=== PATIENT | male | born 1945 | race Caucasian/White ===

== ENCOUNTER 2017-05-07 15:15 | Inpatient (IN) | payer MEDICARE ==
[~2017-05-07] VITALS: Ht 177.8 cm; Wt 47.0 kg
[~2017-05-07 15:15] MED LIST: ARICEPT10 MG PO; MIRTAZAPINE7.5 MG PO; PRILOTC; PROAIR HFA0.09 MG/AC IH; RT ADVAIR 228 DISKUS IH; RT SPIRIVA18 MCG IH; VENTOLIN0.09 MG IH; XOPENEX HF0.045 MG/A IH
[2017-05-07 15:59] LABS: BASO % 0.1 % (0.0-2.0); EOS % 0.1 % (0-4.0); GRAN # 11.5 (1.4-6.5); GRAN % 80.3 % (42.2-75.2); HEMATOCRIT 38.3 % (42.0-52.0); LYMPH # 1.5 (1.2-3.4); LYMPH % 10.3 % (20.0-51.0); MEAN CELL VOLUME 94 fl (80.0-100.0); MEAN CORPUSCULAR HEMOGLOBIN 29 pg (27.0-31.0); MEAN CORPUSCULAR HGB CONC 31 g/dl (33.0-37.0); MONO # 1.2 (0.1-0.6); MONO % 8.4 % (1.7-9.3); PLATELET COUNT 268 K/mm3 (130-400); RED BLOOD COUNT 4.08 M/mm3 (4.20-5.60); REDCELL DISTRIBUTION WIDTH-CV 13.3 % (11.5-14.5); WHITE BLOOD COUNT 14.3 K/mm3 (4.8-10.8)
[2017-05-07 16:02] LABS: INR 1.1 (0.8-3.0); PROTHROMBIN TIME 12.4 SECONDS (9.7-12.8)
[2017-05-07 16:05] LABS: PARTIAL THROMBOPLASTIN TIME 35.2 SECONDS (26.0-37.0)
[2017-05-07 16:14] LABS: ADJUSTED CALCIUM 9.8 mg/dL (8.4-10.2); ALBUMIN 3.6 gm/dL (3.5-5.0); BILIRUBIN,TOTAL 0.6 mg/dL (0.0-1.0); C-REACTIVE PROTEIN 6.7 mg/dL (0.0-0.9); CALCIUM 9.5 mg/dL (8.4-10.2); CREATININE, serum 0.54 mg/dL (0.66-1.25); POTASSIUM 3.8 mmol/L (3.4-5.0); TOTAL PROTEIN 6.8 gm/dL (6.4-8.2)
[2017-05-07 16:15] LABS: ARTERIAL BLD GAS O2 SATURATION 95.4 % (92-100); ARTERIAL BLD GAS TCO2 CT 38.1; ARTERIAL BLOOD GAS BASE EXCESS 11.3 (-2-2); ARTERIAL BLOOD GAS HCO3 36.6 meq/L (22-26); ARTERIAL BLOOD GAS PHT 7.48 C (7.35-7.45); ARTERIAL BLOOD GAS PO2 75.2 mmHg (80-100); ARTERIAL BLOOD GAS PO2T 75.2 (80-100); ARTERIAL BLOOD GAS pH 7.48 (7.35-7.45); OXYHEMOGLOBIN 94.7 %
[2017-05-07 16:17] LABS: ATS? YES
[2017-05-07] MEDS ORDERED: NICOTROL I420 MG/42 IH (16:21)
[2017-05-07] MEDS ORDERED: INCRUSE EL62.5 MCG/A IH (16:22)
[2017-05-07] MEDS ORDERED: MEGACE ORAL40 MG/ML PO (16:23)
[2017-05-07] MEDS ORDERED: RT ADVAIR 228 DISKUS IH (16:23)
[2017-05-07 16:24] LABS: TROPONIN-I 0.059 ng/mL (0.000-0.034)
[2017-05-07] MEDS ORDERED: FENTANYL 50MCG TD (16:24)
[2017-05-07] MEDS ORDERED: VENTOLIN0.09 MG IH (16:25)
[2017-05-07] MEDS ORDERED: ATROVENT INHALE14 GM IH (16:26)
[2017-05-07] MEDS ORDERED: BEVESPI AEROS10.7 GM IH (16:26)
[2017-05-07] MEDS ORDERED: PREDNISONE10 MG PO (16:27)
[2017-05-07] MEDS ORDERED: NASAL MOISTURIZ45 ML NS (16:27)
[2017-05-07] MEDS ORDERED: ATIVAN 0.50.5 MG/TAB PO (16:28)
[2017-05-07] MEDS ORDERED: SENNA8.6 MG PO (16:29)
[2017-05-07] MEDS ORDERED: PRILOSEC 20MG20 MG PO (16:29)
[2017-05-07] MEDS ORDERED: THEO-DUR 3300 MG/TAB PO (16:30)
[2017-05-07] MEDS ORDERED: CLARITIN 1010 MG/TAB PO (16:30)
[2017-05-07] MEDS ORDERED: NORCO 325 MG-51 TAB PO (16:31)
[2017-05-07 17:00] LABS: THEOPHYLLINE 8.6 ug/mL (10.0-20.0)
[2017-05-07 18:12] VITALS: BP 128/65; PULSE 117; TEMP 98.1
[2017-05-07] MEDS ORDERED: TYLENOL 325MG325 MG PO ×2 (18:42)
[2017-05-07] MEDS ORDERED: NORCO 325 MG-7.1 TAB PO (18:44)
[2017-05-07] MEDS ORDERED: RT SPIRIVA18 MCG IH (18:46)
[2017-05-07] MEDS ORDERED: MUCINEX 60600 MG/TA1 PO (18:47)
[2017-05-07] MEDS ORDERED: LIPITOR 40MG TA40 MG PO (18:49)
[2017-05-07] MEDS ORDERED: ASPIRIN 32325 MG/TAB PO (18:49)
[2017-05-08] VITALS (7 sets, daily range): BP systolic 115–155; BP diastolic 45–108; PULSE 107–127; TEMP 97.9–98.4
[2017-05-08 07:18] LABS: MEAN CELL VOLUME 97 fl (80.0-100.0); MEAN CORPUSCULAR HGB CONC 30 g/dl (33.0-37.0); MEAN PLATELET VOLUME 11.6 fl (7.4-10.4); PLATELET COUNT 252 K/mm3 (130-400); RED BLOOD COUNT 3.55 M/mm3 (4.20-5.60); REDCELL DISTRIBUTION WIDTH-CV 13.6 % (11.5-14.5); WHITE BLOOD COUNT 9.1 K/mm3 (4.8-10.8)
[2017-05-08 07:19] LABS: HEMATOCRIT 34.4 % (42.0-52.0); HEMOGLOBIN 10.4 g/dl (13.5-18.0); MEAN CORPUSCULAR HEMOGLOBIN 29 pg (27.0-31.0)
[2017-05-08 07:20] LABS: ADD PATHOLOGY DIFF REVIEW NO
[2017-05-08 07:34] LABS: CALCIUM 8.7 mg/dL (8.4-10.2); CREATININE, serum 0.48 mg/dL (0.66-1.25); POTASSIUM 3.9 mmol/L (3.4-5.0)
[2017-05-08 07:59] LABS: THYROID STIMULATING HORMONE 0.345 uIU/mL (0.465-4.680)
[2017-05-08 08:28] LABS: BAND 10 % (0-10); NEUTROPHILS 84 % (42.0-75.2); TOTAL CELLS COUNTED 100
[2017-05-08 08:29] LABS: PLATELET ESTIMATE NORMAL (NORMAL)
[2017-05-09 02:55] VITALS: BP 134/60; PULSE 106; TEMP 98.6
[2017-05-09 07:25] LABS: BASO % 0.1 % (0.0-2.0); GRAN # 8.4 (1.4-6.5); GRAN % 83.7 % (42.2-75.2); LYMPH # 1.2 (1.2-3.4); LYMPH % 11.9 % (20.0-51.0); MEAN CELL VOLUME 97 fl (80.0-100.0); MEAN CORPUSCULAR HGB CONC 30 g/dl (33.0-37.0); MEAN PLATELET VOLUME 11.7 fl (7.4-10.4); MONO # 0.3 (0.1-0.6); MONO % 3.4 % (1.7-9.3); PLATELET COUNT 271 K/mm3 (130-400); RED BLOOD COUNT 3.47 M/mm3 (4.20-5.60); REDCELL DISTRIBUTION WIDTH-CV 13.5 % (11.5-14.5)
[2017-05-09 07:26] LABS: HEMATOCRIT 33.6 % (42.0-52.0); HEMOGLOBIN 10.1 g/dl (13.5-18.0); MEAN CORPUSCULAR HEMOGLOBIN 29 pg (27.0-31.0)
[2017-05-09 07:32] VITALS: BP 145/79; PULSE 107; TEMP 97.8
[2017-05-09 07:36] LABS: CALCIUM 8.8 mg/dL (8.4-10.2); CREATININE, serum 0.44 mg/dL (0.66-1.25); POTASSIUM 3.7 mmol/L (3.4-5.0)
[2017-05-09 12:47] VITALS: BP 154/69; PULSE 106; TEMP 98.2
[2017-05-09] MEDS ORDERED: ZITHROMAX 250M250 MG PO (15:52)
[2017-05-09] MEDS ORDERED: VENTOLIN0.09 MG IH (16:12)
[2017-05-09] MEDS ORDERED: IPRATROPIUM BROM3 M1 IH (16:14)
[2017-05-09] MEDS ORDERED: PREDNISONE10 MG PO (16:14)
[2017-05-09] MEDS ORDERED: RT ADVAIR 228 DISKUS IH (16:15)
== END 2017-05-09 18:20 | disposition home or self-care (01) | DRG 189 ==
LOC: COL.ER 15:15 → MEDICAL 17:33
PROVIDERS: Emergency Medicine; Family Medicine; Physician Assistant
DX: J96.21 Acute and chronic respiratory failure with hypoxia (principal); E43 Unspecified severe protein-calorie malnutrition; I21.4 Non-ST elevation (NSTEMI) myocardial infarction; J44.1 Chronic obstructive pulmonary disease with (acute) exacerbation; Z68.1 Body mass index [BMI] 19.9 or less, adult; I10 Essential (primary) hypertension; F17.210 Nicotine dependence, cigarettes, uncomplicated; I27.2 Other secondary pulmonary hypertension; D38.1 Neoplasm of uncertain behavior of trachea, bronchus and lung
CPT/HCPCS: 99223-AI; 99233-AI; 99239; J0456; J0696; J1650; J1956; J2543; J2920; J3370; J7030; J7050; Q9967

== ENCOUNTER 2017-05-30 13:01 | Day surgery (SDC) | payer MEDICARE, MEDICAID ==
[~2017-05-30] VITALS: Ht 177.8 cm; Wt 40.0 kg
[2017-05-30] VITALS (9 sets, daily range): BP systolic 113–154; BP diastolic 70–83; PULSE 106–118; TEMP 99.2
[~2017-05-30 13:01] MED LIST changes: +ASPIRIN 32325 MG/TAB PO; +ATIVAN 0.50.5 MG/TAB PO; +ATROVENT INHALE14 GM IH; +BEVESPI AEROS10.7 GM IH; +CLARITIN 1010 MG/TAB PO; +FENTANYL 50MCG TD; +INCRUSE EL62.5 MCG/A IH; +IPRATROPIUM BROM3 M1 IH; +LIPITOR 40MG TA40 MG PO; +MEGACE ORAL40 MG/ML PO; +MUCINEX 60600 MG/TA1 PO; +NASAL MOISTURIZ45 ML NS; +NICOTROL I420 MG/42 IH; +NORCO 325 MG-51 TAB PO; +NORCO 325 MG-7.1 TAB PO; +PREDNISONE10 MG PO; +PRILOSEC 20MG20 MG PO; +SENNA8.6 MG PO; +THEO-DUR 3300 MG/TAB PO; +TYLENOL 325MG325 MG PO; +ZITHROMAX 250M250 MG PO
[2017-05-30 13:56] LABS: HEMATOCRIT 38.4 % (42.0-52.0); HEMOGLOBIN 12.1 g/dl (13.5-18.0); MEAN CELL VOLUME 94 fl (80.0-100.0); MEAN CORPUSCULAR HEMOGLOBIN 30 pg (27.0-31.0); MEAN CORPUSCULAR HGB CONC 32 g/dl (33.0-37.0); PLATELET COUNT 238 K/mm3 (130-400); RED BLOOD COUNT 4.07 M/mm3 (4.20-5.60); REDCELL DISTRIBUTION WIDTH-CV 13.8 % (11.5-14.5); WHITE BLOOD COUNT 11.6 K/mm3 (4.8-10.8)
[2017-05-30 13:57] LABS: PROTHROMBIN TIME 11.3 SECONDS (9.7-12.8)
[2017-05-30 14:15] LABS: CALCIUM 9.3 mg/dL (8.4-10.2); CREATININE, serum 0.48 mg/dL (0.66-1.25); POTASSIUM 3.8 mmol/L (3.4-5.0)
[2017-05-30] MEDS ORDERED: PREDNISONE10 MG PO (14:30)
[2017-05-30] MEDS ORDERED: NORCO 325 MG-51 TAB PO (14:33)
== END 2017-05-30 19:00 | disposition home or self-care (01) ==
LOC: COL.CAR 13:01
PROVIDERS: Internal Medicine Interventional Cardiology
DX: I25.10 Atherosclerotic heart disease of native coronary artery without angina pectoris (principal); R94.39 Abnormal result of other cardiovascular function study; I07.1 Rheumatic tricuspid insufficiency; D49.1 Neoplasm of unspecified behavior of respiratory system; F17.210 Nicotine dependence, cigarettes, uncomplicated; I73.9 Peripheral vascular disease, unspecified; J44.9 Chronic obstructive pulmonary disease, unspecified; M79.605 Pain in left leg; M79.604 Pain in right leg; R06.02 Shortness of breath
CPT/HCPCS: C1760; C1894; J3010; Q9967

== ENCOUNTER 2017-06-24 12:23 | Observation (INO) | payer MEDICARE, MEDICAID ==
[~2017-06-24] VITALS: Ht 177.8 cm; Wt 41.3 kg
[2017-06-24] MEDS ORDERED: CARDIZEM120 MG PO (12:45)
[2017-06-24 13:50] LABS: HEMATOCRIT 41.7 % (42.0-52.0); HEMOGLOBIN 12.8 g/dl (13.5-18.0); MEAN CELL VOLUME 95 fl (80.0-100.0); MEAN CORPUSCULAR HEMOGLOBIN 29 pg (27.0-31.0); MEAN CORPUSCULAR HGB CONC 31 g/dl (33.0-37.0); MEAN PLATELET VOLUME 10.7 fl (7.4-10.4); PLATELET COUNT 309 K/mm3 (130-400); RED BLOOD COUNT 4.37 M/mm3 (4.20-5.60); REDCELL DISTRIBUTION WIDTH-CV 14.6 % (11.5-14.5); WHITE BLOOD COUNT 13.9 K/mm3 (4.8-10.8)
[2017-06-24 13:56] LABS: ADD PATHOLOGY DIFF REVIEW NO
[2017-06-24 14:01] LABS: ADJUSTED CALCIUM 9.9 mg/dL (8.4-10.2); ALANINE AMINOTRANSFERASE 25 U/L (21-72); ALBUMIN 4.3 gm/dL (3.5-5.0); ALKALINE PHOSPHATASE 117 U/L (50-136); ANION GAP 10 mmol/L (7-16); BILIRUBIN,TOTAL 0.7 mg/dL (0.0-1.0); BLOOD UREA NITROGEN 15 mg/dL (9-20); CALCIUM 10.1 mg/dL (8.4-10.2); CARBON DIOXIDE 37 mmol/L (22-30); CHLORIDE 94 mmol/L (98-107); CREATININE, serum 0.48 mg/dL (0.66-1.25); GLUCOSE 77 mg/dL (74-106); POTASSIUM 4.5 mmol/L (3.4-5.0); SODIUM 140 mmol/L (137-145); TOTAL PROTEIN 7.7 gm/dL (6.4-8.2)
[2017-06-24 14:02] LABS: PROTHROMBIN TIME 10.5 SECONDS (9.7-12.8)
[2017-06-24 14:03] LABS: PARTIAL THROMBOPLASTIN TIME 27.5 SECONDS (26.0-37.0)
[2017-06-24 14:13] LABS: B-TYPE NATRIURETIC PEPTIDE 207 pg/mL (0-125)
[2017-06-24 14:14] LABS: TROPONIN-I < 0.012 ng/mL (0.000-0.034)
[2017-06-24 14:15] LABS: BAND 1 % (0-10); NEUTROPHILS 68 % (42.0-75.2); TOTAL CELLS COUNTED 100
[2017-06-24 14:16] LABS: SPHEROCYTE 1+; STOMATOCYTE 2+
[2017-06-24 14:18] LABS: PLATELET ESTIMATE NORMAL (NORMAL); POLYCHROMASIA 1+
[2017-06-24 17:50] VITALS: BP 143/81; PULSE 94; TEMP 98.2
[2017-06-24 19:55] VITALS: BP 152/70; PULSE 121; TEMP 97.8
[2017-06-24 23:40] VITALS: BP 146/75; PULSE 116; TEMP 97.9
[2017-06-25] VITALS (7 sets, daily range): BP systolic 97–138; BP diastolic 51–70; PULSE 99–107; TEMP 97.5–98.7
[2017-06-25 01:54] LABS: PH 5 (5-8); SQUAMOUS EPITHELIAL None Seen /hpf; URINE APPEARANCE Clear; URINE BACTERIA None Seen /hpf; URINE BILIRUBIN Negative (NEGATIVE); URINE BLOOD Negative (NEGATIVE); URINE COLOR Yellow; URINE GLUCOSE Negative (NEGATIVE); URINE KETONE Negative (NEGATIVE); URINE RBC 0-2 /hpf; URINE UROBILINOGEN Negative (NEGATIVE); URINE WBC 0-2 /hpf
[2017-06-25 10:52] LABS: MEAN CELL VOLUME 97 fl (80.0-100.0); MEAN CORPUSCULAR HGB CONC 31 g/dl (33.0-37.0); MEAN PLATELET VOLUME 10.7 fl (7.4-10.4); PLATELET COUNT 247 K/mm3 (130-400); RED BLOOD COUNT 3.45 M/mm3 (4.20-5.60); REDCELL DISTRIBUTION WIDTH-CV 14.7 % (11.5-14.5)
[2017-06-25 10:55] LABS: ADD PATHOLOGY DIFF REVIEW NO; HEMATOCRIT 33.4 % (42.0-52.0); HEMOGLOBIN 10.2 g/dl (13.5-18.0); MEAN CORPUSCULAR HEMOGLOBIN 30 pg (27.0-31.0)
[2017-06-25 11:11] LABS: BAND 6 % (0-10); BASOPHIL 2 % (0-2); EOSINOPHIL 3 % (0-4); METAMYELOCYTE 1 % (0-0); NEUTROPHILS 74 % (42.0-75.2); TOTAL CELLS COUNTED 100
[2017-06-25 11:12] LABS: ANISOCYTOSIS 1+; HYPOCHROMIA 1+; PLATELET ESTIMATE NORMAL (NORMAL)
[2017-06-26 02:42] VITALS: BP 120/61; PULSE 98
[2017-06-26 08:46] VITALS: BP 130/65; PULSE 100; TEMP 98.1
[2017-06-26] MEDS ORDERED: DIFLUCAN 100MG100 MG PO ×2 (09:45→13:10)
[2017-06-26] MEDS ORDERED: NYSTATIN OR100 MU/ML PO (09:47)
== END 2017-06-26 12:58 | disposition home or self-care (01) ==
LOC: COL.ER 12:23 → MEDICAL 16:46
PROVIDERS: Emergency Medicine; Internal Medicine
DX: B37.0 Candidal stomatitis (principal); E86.0 Dehydration; D72.829 Elevated white blood cell count, unspecified; R19.7 Diarrhea, unspecified; K59.03 Drug induced constipation; J44.9 Chronic obstructive pulmonary disease, unspecified; J43.9 Emphysema, unspecified; J96.11 Chronic respiratory failure with hypoxia; R91.8 Other nonspecific abnormal finding of lung field; I47.1 Supraventricular tachycardia; I07.1 Rheumatic tricuspid insufficiency; Z99.81 Dependence on supplemental oxygen; I27.2 Other secondary pulmonary hypertension; Z66 Do not resuscitate; G89.29 Other chronic pain; M54.9 Dorsalgia, unspecified; F17.210 Nicotine dependence, cigarettes, uncomplicated; Z79.52 Long term (current) use of systemic steroids
CPT/HCPCS: G0378; G8978-GP; G8979-GP; J1450; J1650; J1956; J3010; J7030; J7512; Q9967

== ENCOUNTER 2017-07-16 13:50 | Inpatient (IN) | payer MEDICARE, MEDICAID ==
[~2017-07-16] VITALS: Ht 177.8 cm; Wt 39.7 kg
[~2017-07-16 13:50] MED LIST changes: +CARDIZEM120 MG PO; +DIFLUCAN 100MG100 MG PO; +NYSTATIN OR100 MU/ML PO
[2017-07-16 14:47] LABS: VENOUS BLOOD GAS BE 11.2 (-4-4); VENOUS BLOOD GAS SAO2 79.3 % (60-80)
[2017-07-16 14:49] LABS: VENOUS BLOOD GAS SITE VENIPUNCTURE
[2017-07-16 15:01] LABS: ADJUSTED CALCIUM 9.8 mg/dL (8.4-10.2); ALBUMIN 3.8 gm/dL (3.5-5.0); BILIRUBIN,TOTAL 1.1 mg/dL (0.0-1.0); CALCIUM 9.6 mg/dL (8.4-10.2); CREATININE, serum 0.44 mg/dL (0.66-1.25); POTASSIUM 4.1 mmol/L (3.4-5.0)
[2017-07-16 15:06] LABS: HEMATOCRIT 41.6 % (42.0-52.0); HEMOGLOBIN 13.1 g/dl (13.5-18.0); MEAN CELL VOLUME 94 fl (80.0-100.0); MEAN CORPUSCULAR HEMOGLOBIN 30 pg (27.0-31.0); MEAN CORPUSCULAR HGB CONC 32 g/dl (33.0-37.0); MEAN PLATELET VOLUME 10.7 fl (7.4-10.4); PLATELET COUNT 337 K/mm3 (130-400); RED BLOOD COUNT 4.43 M/mm3 (4.20-5.60); REDCELL DISTRIBUTION WIDTH-CV 14.1 % (11.5-14.5); WHITE BLOOD COUNT 15.1 K/mm3 (4.8-10.8)
[2017-07-16 15:14] LABS: ADD PATHOLOGY DIFF REVIEW NO
[2017-07-16 15:55] LABS: BAND 15 % (0-10); NEUTROPHILS 76 % (42.0-75.2); PLATELET ESTIMATE NORMAL (NORMAL); TOTAL CELLS COUNTED 100
[2017-07-16] MEDS ORDERED: XYZAL5 MG PO (16:21)
[2017-07-16] MEDS ORDERED: CARDIZEM120 MG PO (18:09)
[2017-07-16] MEDS ORDERED: PREDNISONE20 MG PO (18:10)
[2017-07-16] MEDS ORDERED: THEO-DUR 3300 MG/TAB PO (18:11)
[2017-07-16] MEDS ORDERED: SENNA8.6 MG PO (18:13)
[2017-07-16 18:41] VITALS: BP 113/61; PULSE 116; TEMP 97.9
[2017-07-16 20:53] VITALS: BP 115/68; PULSE 112; TEMP 97.6
[2017-07-17 00:23] VITALS: BP 140/62; PULSE 109; TEMP 97.9
[2017-07-17 04:45] VITALS: BP 118/67; PULSE 104; TEMP 97.9
[2017-07-17 08:06] VITALS: BP 123/65; PULSE 107; TEMP 97.2
[2017-07-17 08:34] LABS: MEAN CELL VOLUME 95 fl (80.0-100.0); MEAN CORPUSCULAR HGB CONC 31 g/dl (33.0-37.0); MEAN PLATELET VOLUME 11.3 fl (7.4-10.4); PLATELET COUNT 287 K/mm3 (130-400); RED BLOOD COUNT 3.63 M/mm3 (4.20-5.60); REDCELL DISTRIBUTION WIDTH-CV 13.7 % (11.5-14.5); WHITE BLOOD COUNT 6.9 K/mm3 (4.8-10.8)
[2017-07-17 08:40] LABS: HEMATOCRIT 34.5 % (42.0-52.0); HEMOGLOBIN 10.7 g/dl (13.5-18.0); MEAN CORPUSCULAR HEMOGLOBIN 29 pg (27.0-31.0)
[2017-07-17 08:41] LABS: ADD PATHOLOGY DIFF REVIEW NO
[2017-07-17 08:44] LABS: CALCIUM 9.3 mg/dL (8.4-10.2); CREATININE, serum 0.44 mg/dL (0.66-1.25); POTASSIUM 4.5 mmol/L (3.4-5.0)
[2017-07-17 09:27] LABS: BAND 12 % (0-10); METAMYELOCYTE 1 % (0-0); MYELOCYTE 1 % (0-0); NEUTROPHILS 75 % (42.0-75.2); PLATELET ESTIMATE NORMAL (NORMAL); TOTAL CELLS COUNTED 100
[2017-07-17 12:42] VITALS: BP 114/60; PULSE 105; TEMP 98.1
[2017-07-17 16:10] VITALS: BP 116/62; PULSE 76; TEMP 98.3
[2017-07-17 20:24] VITALS: BP 121/62; PULSE 119; TEMP 98.1
[2017-07-18 00:20] VITALS: BP 118/63; PULSE 101; TEMP 97.5
[2017-07-18 04:00] VITALS: BP 126/63; PULSE 100; TEMP 97.4
[2017-07-18 07:35] VITALS: BP 144/68; PULSE 103; TEMP 97.2
[2017-07-18 07:42] LABS: HEMATOCRIT 31.9 % (42.0-52.0); MEAN CELL VOLUME 94 fl (80.0-100.0); MEAN CORPUSCULAR HEMOGLOBIN 29 pg (27.0-31.0); MEAN CORPUSCULAR HGB CONC 31 g/dl (33.0-37.0); MEAN PLATELET VOLUME 11.3 fl (7.4-10.4); PLATELET COUNT 264 K/mm3 (130-400); RED BLOOD COUNT 3.39 M/mm3 (4.20-5.60); REDCELL DISTRIBUTION WIDTH-CV 13.7 % (11.5-14.5); WHITE BLOOD COUNT 10.4 K/mm3 (4.8-10.8)
[2017-07-18 07:43] LABS: ADD PATHOLOGY DIFF REVIEW NO
[2017-07-18 08:37] LABS: BAND 17 % (0-10); NEUTROPHILS 61 % (42.0-75.2); TOTAL CELLS COUNTED 100
[2017-07-18 08:39] LABS: HYPOCHROMIA 2+; PLATELET ESTIMATE NORMAL (NORMAL)
[2017-07-18 08:41] LABS: STOMATOCYTE 1+
[2017-07-18 11:36] VITALS: BP 118/61; PULSE 117; TEMP 97.5
[2017-07-18] MEDS ORDERED: LEVAQUIN 5500 MG/TA1 PO (12:33)
== END 2017-07-18 13:45 | disposition home health service (06) | DRG 190 ==
LOC: COL.ER 13:50 → MEDICAL 17:06
PROVIDERS: Emergency Medicine; Family Medicine; Physician Assistant
DX: J44.0 Chronic obstructive pulmonary disease with (acute) lower respiratory infection (principal); J18.9 Pneumonia, unspecified organism; E43 Unspecified severe protein-calorie malnutrition; C34.11 Malignant neoplasm of upper lobe, right bronchus or lung; Z68.1 Body mass index [BMI] 19.9 or less, adult; J44.1 Chronic obstructive pulmonary disease with (acute) exacerbation; I27.2 Other secondary pulmonary hypertension; Z66 Do not resuscitate; F17.210 Nicotine dependence, cigarettes, uncomplicated; Z99.81 Dependence on supplemental oxygen
CPT/HCPCS: 99222; 99222-AI; 99232-AI; 99239; G0378; J1644; J1956; J2920; J2930; J7030; J7040